=== PATIENT | female | born 1980 | race Caucasian/White ===

== ENCOUNTER 2024-06-15 09:24 | Emergency (ER) | payer OTHER, SELFPAY ==
[2024-06-15 09:42] VITALS: BP 137/75; PULSE 104; RESP 16; TEMP 36.4; O2SAT 100
--- NOTE | 2024-06-15 10:48 | ECG_ITS ---
Test Date: 2024-06-15 11:26:39 Measurements Intervals [place] Rate: 89 P: 50 WV: 165 QRS: 50 QRSD: 94 T: 29 QT: 366 QTc: 447 Interpretive Statements SINUS RHYTHM BASELINE ARTIFACT- I, II, III, AVR, AVL, AVF, V1-V3 NORMAL ECG No previous ECG available for comparison Electronically Signed On 06-15-2024 13:29:17 NETWORK CONTROL SUPERVISOR by Derrell Samuel D.O.
--- NOTE | 2024-06-15 10:49 | ED.GENADULT ---
HPI - General Adult General Chief complaint: Unspecified <Patricia Weeks CHAIN SAW MECHANIC - Last Filed: 06/15/24 10:52> Stated complaint: insomnia <Patricia Weeks APRN - Last Filed: 06/15/24 10:52> Time Seen by Provider: 06/15/24 10:40 <Patricia Weeks CHAIN SAW MECHANIC - Last Filed: 06/15/24 10:52> Focused HPI: Patient is a 43-year-old female presents to the ER with complaints not sleeping for ?5 days. She reports ?my mind is racing and I'm irritable. Patient reports they have tried to do medication changes at [place], where she currently resides, but they have not helped relieve her insomnia. She will reports she has not used any illicit drugs since May 21, 2024. Patient reports she currently takes Ativan, hydroxyzine, trazodone, Seroquel, and other psychiatric medications. She denies any suicidal ideation or homicidal ideation. Patient denies headaches, chest pain, shortness of breath, recent fevers, but endorses feeling ?brain . GENERAL: Ill-appearing, well-nourished, and in no acute distress. HEAD: Normocephalic, atraumatic. CHEST: Clear to auscultation. ?No respiratory distress. HEART: Tachycardia, regular rhythm NEURO: ?Alert and oriented x3. Patient screened in triage and initial orders placed.? ?Additional care and disposition to be based upon?diagnostic testing and treatment. <Patricia Weeks, CHAIN SAW MECHANIC - Last Filed: 06/15/24 10:52> Related Data Allergies/adverse reactions: Allergies Allergy/AdvReac Type Severity Reaction Status Date / Time azithromycin Allergy Hives Verified 06/15/24 09:46 cefaclor (From Ceclor) Allergy Hives Verified 06/15/24 09:46 fluoxetine (From Prozac) Allergy Swelling Verified 06/15/24 09:46 of the Eye Sulfa (Sulfonamide Allergy Hives Verified 06/15/24 09:46 Antibiotics) <Patricia Weeks APRN - Last Filed: 06/15/24 10:52> Exam Narrative: APPEARANCE: No apparent distress. Head: atraumatic. EYES: EOMI, NOSE: Atraumatic NECK: Trachea midline RESPIRATORY: No increased rate of breathing CTAB CARDIOVASCULAR: RRR, no peripheral edema ABDOMINAL: Non-distended soft nontender MUSCULOSKELETAl: No obvious deformities NEURO: Alert. Moving 4/4 extremities SKIN:: Warm, dry. Normal color PSYCHIATRIC: Normal affect <Kervin Dunbar MD - Last Filed: 06/15/24 12:38> Course Vital Signs Vital signs: Vital Signs Temperature 97.6 F 06/15/24 09:42 Pulse Rate 104 H 06/15/24 09:42 Respiratory Rate 16 06/15/24 09:42 Blood Pressure 137/75 06/15/24 09:42 Pulse Oximetry 100 06/15/24 09:42 Temperature 97.6 F 06/15/24 09:42 Pulse Rate 104 H 06/15/24 09:42 Respiratory Rate 16 06/15/24 09:42 Blood Pressure 137/75 06/15/24 09:42 Pulse Oximetry 100 06/15/24 09:42 <Patricia Weeks APRN - Last Filed: 06/15/24 10:52> Vital Signs Temperature 97.6 F 06/15/24 09:42 Pulse Rate 104 H 06/15/24 09:42 Respiratory Rate 16 06/15/24 09:42 Blood Pressure 137/75 06/15/24 09:42 Pulse Oximetry 100 06/15/24 09:42 Temperature 97.6 F 06/15/24 09:42 Pulse Rate 104 H 06/15/24 09:42 Respiratory Rate 16 06/15/24 09:42 Blood Pressure 137/75 06/15/24 09:42 Pulse Oximetry 100 06/15/24 09:42 <Kervin Dunbar MD - Last Filed: 06/15/24 12:38> Medical Decision Making MDM Narrative Medical decision making narrative: -Course: 43-year-old female history of insomnia presenting with difficulty sleeping. Her medications are being changed by her primary care physician. Patient is not suicidal homicidal or psychotic. She was given benzodiazepines for anxiolysis and sleep. Discharged follow-up with her PCP. -DDX includes but is not limited to: Insomnia, anxiety <Kervin Dunbar MD - Last Filed: 06/15/24 12:38> Vital Signs Vital Signs: Vital Signs Temperature 97.6 F 06/15/24 09:42 Pulse Rate 104 H 06/15/24 09:42 Respiratory Rate 16 06/15/24 09:42 Blood Pressure 137/75 06/15/24 09:42 Pulse Oximetry 100 06/15/24 09:42 Temperature 97.6 F 06/15/24 09:42 Pulse Rate 104 H 06/15/24 09:42 Respiratory Rate 16 06/15/24 09:42 Blood Pressure 137/75 06/15/24 09:42 Pulse Oximetry 100 06/15/24 09:42 <Patricia Weeks APRN - Last Filed: 06/15/24 10:52> Vital Signs Temperature 97.6 F 06/15/24 09:42 Pulse Rate 104 H 06/15/24 09:42 Respiratory Rate 16 06/15/24 09:42 Blood Pressure 137/75 06/15/24 09:42 Pulse Oximetry 100 06/15/24 09:42 Temperature 97.6 F 06/15/24 09:42 Pulse Rate 104 H 06/15/24 09:42 Respiratory Rate 16 06/15/24 09:42 Blood Pressure 137/75 06/15/24 09:42 Pulse Oximetry 100 06/15/24 09:42 <Kervin Dunbar MD - Last Filed: 06/15/24 12:38> Lab Data Result diagrams: 06/15/24 11:16 06/15/24 11:16 <Patricia Weeks APRN - Last Filed: 06/15/24 10:52> Labs: Lab Results 06/15/24 06/15/24 Range/Units 11:06 11:16 WBC 6.8 (4.5-10.0) K/mm3 RBC 4.48 (4.2-5.4) M/mm3 Hgb 13.2 (12.0-15.0) g/dL Hct 41.6 (37.0-47.0) % MCV 92.9 (80-100) fl MCH 29.5 (26-34) pg MCHC 31.7 L (32-36) g/dl RDW 12.1 (11.5-14.5) % Plt Count 185 (150-375) k/mm3 MPV 10.0 (7.4-10.4) fl Immature Gran % (Auto) 0.3 (0-0.5) % Neut % (Auto) 58.7 (45.5-73.1) % Lymph % (Auto) 28.4 (18.3-44.2) % [place] % (Auto) 8.4 (2.6-8.5) % Eos % (Auto) 3.6 (0-4.4) % Baso % (Auto) 0.6 (0.2-1.2) % Lymph # (Auto) 1.92 (0.9-3.2) K/mm3 [place] # (Auto) 0.6 (0.1-0.6) K/mm3 Eos # (Auto) 0.2 (0-0.3) K/mm3 Baso # (Auto) 0.0 (0.0-0.1) K/mm3 Abs Immat Gran (auto) 0.02 (0.00-0.031) K/mm3 Absolute Neuts (auto) 4.0 (1.3-6.7) K/mm3 Absolute Nucleated RBC 0.000 (0.0-0.012) K/mm3 Nucleated RBC % 0.0 (0.0-0.2) % Sodium 135 L (137-145) mmol/L Potassium 4.3 (3.4-5.0) mmol/L Chloride 100 (98-107) mmol/L Carbon Dioxide 31 H (22-30) mmol/L Anion Gap 4 (4-12) mmol/L BUN 13 (7-17) mg/dL Creatinine 0.69 L (0.7-1.0) mg/dL Estim Creat Clear Calc 113 ml/min Estimated GFR > 60 (59 - ) Glucose 93 (65-110) mg/dL Calcium 8.9 (8.4-10.2) mg/dL Total Bilirubin 0.4 (0.2-1.3) mg/dL AST 23 (14-36) U/L ALT 20 (6-35) U/L Alkaline Phosphatase 54 (38-126) U/L Total Protein 7.0 (6.3-8.2) g/dL Albumin 3.8 (3.5-5.1) g/dL TSH (Reflex) Pending Urine Color Yellow (Yellow) Urine Appearance Clear (Clear) Urine pH 7.0 (5.0-9.0) Ur Specific Rosalie 1.011 (1.001-1.035) Urine Protein Negative (Negative) mg/dL Urine Glucose (UA) Negative (Negative) mg/dL Urine Ketones Negative (Negative) mg/dL Ur Blood (Man) Negative (Negative) Urine Nitrate Negative (Negative) Urine Bilirubin Negative (Negative) Urine Urobilinogen 0.2 (<2.0) mg/dL Leukocyte Esterase Rfl Negative (Negative) JESSICA/UL Urine Opiates Screen Positive A (Negative) Urine Methadone Screen Negative (Negative) Ur Barbiturates Screen Negative (Negative) Ur Phencyclidine Scrn Negative (Negative) Ur Amphetamine Screen Negative (Negative) U Benzodiazepines Scrn Negative (Negative) Urine Cocaine Screen Negative (Negative) U Cannabinoids Screen Positive A (Negative) Influenza A (RT-PCR) Negative (Negative) Influenza B (RT-PCR) Negative (Negative) RSV (RT-PCR) Negative (Negative) SARS-CoV-2 RNA (RT-PCR) Negative (Negative) <Patricia Weeks, CHAIN SAW MECHANIC - Last Filed: 06/15/24 10:52> Lab Results 06/15/24 06/15/24 Range/Units 11:06 11:16 WBC 6.8 (4.5-10.0) K/mm3 RBC 4.48 (4.2-5.4) M/mm3 Hgb 13.2 (12.0-15.0) g/dL Hct 41.6 (37.0-47.0) % MCV 92.9 (80-100) fl MCH 29.5 (26-34) pg MCHC 31.7 L (32-36) g/dl RDW 12.1 (11.5-14.5) % Plt Count 185 (150-375) k/mm3 MPV 10.0 (7.4-10.4) fl Immature Gran % (Auto) 0.3 (0-0.5) % Neut % (Auto) 58.7 (45.5-73.1) % Lymph % (Auto) 28.4 (18.3-44.2) % [place] % (Auto) 8.4 (2.6-8.5) % Eos % (Auto) 3.6 (0-4.4) % Baso % (Auto) 0.6 (0.2-1.2) % Lymph # (Auto) 1.92 (0.9-3.2) K/mm3 [place] # (Auto) 0.6 (0.1-0.6) K/mm3 Eos # (Auto) 0.2 (0-0.3) K/mm3 Baso # (Auto) 0.0 (0.0-0.1) K/mm3 Abs Immat Gran (auto) 0.02 (0.00-0.031) K/mm3 Absolute Neuts (auto) 4.0 (1.3-6.7) K/mm3 Absolute Nucleated RBC 0.000 (0.0-0.012) K/mm3 Nucleated RBC % 0.0 (0.0-0.2) % Sodium 135 L (137-145) mmol/L Potassium 4.3 (3.4-5.0) mmol/L Chloride 100 (98-107) mmol/L Carbon Dioxide 31 H (22-30) mmol/L Anion Gap 4 (4-12) mmol/L BUN 13 (7-17) mg/dL Creatinine 0.69 L (0.7-1.0) mg/dL Estim Creat Clear Calc 113 ml/min Estimated GFR > 60 (59 - ) Glucose 93 (65-110) mg/dL Calcium 8.9 (8.4-10.2) mg/dL Total Bilirubin 0.4 (0.2-1.3) mg/dL AST 23 (14-36) U/L ALT 20 (6-35) U/L Alkaline Phosphatase 54 (38-126) U/L Total Protein 7.0 (6.3-8.2) g/dL Albumin 3.8 (3.5-5.1) g/dL TSH (Reflex) Pending Urine Color Yellow (Yellow) Urine Appearance Clear (Clear) Urine pH 7.0 (5.0-9.0) Ur Specific Rosalie 1.011 (1.001-1.035) Urine Protein Negative (Negative) mg/dL Urine Glucose (UA) Negative (Negative) mg/dL Urine Ketones Negative (Negative) mg/dL Ur Blood (Man) Negative (Negative) Urine Nitrate Negative (Negative) Urine Bilirubin Negative (Negative) Urine Urobilinogen 0.2 (<2.0) mg/dL Leukocyte Esterase Rfl Negative (Negative) JESSICA/UL Urine Opiates Screen Positive A (Negative) Urine Methadone Screen Negative (Negative) Ur Barbiturates Screen Negative (Negative) Ur Phencyclidine Scrn Negative (Negative) Ur Amphetamine Screen Negative (Negative) U Benzodiazepines Scrn Negative (Negative) Urine Cocaine Screen Negative (Negative) U Cannabinoids Screen Positive A (Negative) Influenza A (RT-PCR) Negative (Negative) Influenza B (RT-PCR) Negative (Negative) RSV (RT-PCR) Negative (Negative) SARS-CoV-2 RNA (RT-PCR) Negative (Negative) <Kervin Dunbar MD - Last Filed: 06/15/24 12:38> Discharge Plan Discharge Clinical Impression: Insomnia <Patricia Weeks APRN - Last Filed: 06/15/24 10:52> Patient Disposition: Home, Self-Care <Patricia Weeks APRN - Last Filed: 06/15/24 10:52> Condition: Stable <Patricia Weeks APRN - Last Filed: 06/15/24 10:52> Instructions: Antibiotic Form, Insomnia (ED) <Patricia Weeks APRN - Last Filed: 06/15/24 10:52> Additional Instructions: Please follow-up with your primary care physician for management of your psychiatric medications. Return if you develop thoughts of harming herself or others. <Patricia Weeks APRN - Last Filed: 06/15/24 10:52> Patient Language: Armenian <Patricia Weeks APRN - Last Filed: 06/15/24 10:52> Follow-up/Referrals: PHYSICIAN NOT ON STAFF,NONSTAFF [Primary Care Provider] - <Patricia Weeks APRN - Last Filed: 06/15/24 10:52>
[2024-06-15 11:17] LABS: Add Urine Microscopic? NO; Appearance Urine Clear (Clear); Bilirubin Urine Negative (Negative); Blood Urine Negative (Negative); Color Urine Yellow (Yellow); Glucose Urine UA Negative (Negative); Ketones Urine Negative (Negative); Leukocyte Esterase Ur Negative LEU/UL (Negative); Nitrate Urine Negative (Negative); Protein Urine Negative (Negative); Specific Grav Ur 1.011 (1.001-1.035); Urobilinogen Urine 0.2 mg/dL (<2.0)
[2024-06-15] MEDS: LORazepam (*CRX) 1 MG TABLET PO (11:21)
[2024-06-15 11:29] LABS: Basophils Percent Auto 0.6 % (0.2-1.2); Eosinophils Absolute Auto 0.2 K/mm3 (0-0.3); Eosinophils Percent Auto 3.6 % (0-4.4); Hematocrit 41.6 % (37.0-47.0); Hemoglobin 13.2 g/dL (12.0-15.0); Immature Granulocyte Absolute 0.02 K/mm3 (0.00-0.031); Immature Granulocyte Percent A 0.3 % (0-0.5); Lymphocytes Absolute Auto 1.92 K/mm3 (0.9-3.2); Lymphocytes Percent Auto 28.4 % (18.3-44.2); Mean Corpuscular HGB Conc 31.7 g/dl (32-36); Mean Corpuscular Hemoglobin 29.5 pg (26-34); Mean Corpuscular Volume 92.9 fl (80-100); Monocytes Absolute Auto 0.6 K/mm3 (0.1-0.6); Monocytes Percent Auto 8.4 % (2.6-8.5); Neutrophils Percent Auto 58.7 % (45.5-73.1); Platelet Count Result 185 k/mm3 (150-375); Red Blood Count 4.48 M/mm3 (4.2-5.4); Red Cell Distribution Width 12.1 % (11.5-14.5); White Blood Count 6.8 K/mm3 (4.5-10.0)
[2024-06-15 11:32] LABS: Amphetamine Screen Urine Negative (Negative); Barbiturate Screen Urine Negative (Negative); Benzodiazepines Screen Urine Negative (Negative); Cannabinoid Screen Urine Positive (Negative); Cocaine Screen Urine Negative (Negative); Methadone Screen Urine Negative (Negative); Opiate Screen Urine Positive (Negative); Phencyclidine Screen Urine Negative (Negative)
[2024-06-15 11:48] LABS: Alanine Aminotransferase 20 U/L (6-35); Albumin Level 3.8 g/dL (3.5-5.1); Alkaline Phosphatase 54 U/L (38-126); Anion Gap 4 mmol/L (4-12); Aspartate Amino Transferase 23 U/L (14-36); Bilirubin,Total 0.4 mg/dL (0.2-1.3); Blood Urea Nitrogen 13 mg/dL (7-17); Calcium 8.9 mg/dL (8.4-10.2); Carbon Dioxide 31 mmol/L (22-30); Chloride 100 mmol/L (98-107); Estimated CRCL calculation 113 ml/min; Estimated Glomerular Filt Rate > 60; Glucose 93 mg/dL (65-110); Potassium 4.3 mmol/L (3.4-5.0); Sodium 135 mmol/L (137-145)
[2024-06-15 12:05] LABS: Influenza A QL RT-PCR Negative (Negative); Influenza B QL RT-PCR Negative (Negative); RSV RNA, RT-PCR Negative (Negative); SARS-CoV-2 RNA PCR Negative (Negative)
[2024-06-15] MEDS: diazePAM INJ (*CRX) 10 MG/2 ML SYRINGE 5 MG IM (12:42)
--- OUTSIDE RECORDS SUMMARY | 2024-06-15 13:39 | XMS_ITS | Clinical Summary ---
Author Organization [facility] Address [address] [place] [address] Phone Care Team Providers Care Safety Person Name Role Phone Migdalia Meek MD Primary Care Provider + [phone] Nona Hawley APRN, CHIEF ADMINISTRATIVE OFFICER Unavailable [phone] Allergies Active Allergy Reactions Criticality Noted Date Comments Cefaclor Hives,Diarrhea High Erythromycin Hives,Diarrhea High Fluoxetine Hcl Hives,Other (see Comments) High Angioedema and hives Sulfa Antibiotics Hives,Rash High Medications * This document contains information received from the source organization and may not represent a complete record from that organization. TraZODone HCl 300 MG Tablet Take 300 mg by mouth nightly. 5 6 Active Omeprazole 20 MG Tablet Delayed Response Take 20 mg by mouth daily. Active hydrOXYzine (ATARAX) 25 MG Tablet TK 1 TO 2 TS PO TID PRA 3 9 Active divalproex (DEPAKOTE ER) 500 MG TABLET SR 24 HR 500 mg nightly. 0 Active ARIPiprazole (ABILIFY) 5 MG Tablet Take 10 mg by mouth daily. Active melatonin 3 MG Tablet Take 10 mg by mouth nightly. 10 mg q hs Active tiZANidine (ZANAFLEX) 4 MG Tablet Take 1 Tablet by mouth every 6 hours as needed for Muscle spasms. 360 Tablet 1 1 Active HYDROcodone-acet aminophen (NORCO) 10-325 MG TabletIndication s:Postlaminectom y syndrome, lumbar region Take 1 Tablet by mouth every 6 hours as needed for Moderate or more severe pain. 120 Tablet 2 Active morphine (MS CONTIN) 30 MG Tablet Controlled ReleaseIndicatio ns:Postlaminecto my syndrome, lumbar region Take 1 Tablet by mouth 2 times daily. 60 Tablet 2 Active pregabalin (Lyrica) 150 MG CapsuleIndicatio ns:Postlaminecto my syndrome, lumbar region Take 1 Capsule by mouth 3 times daily. 270 Capsule 2 Active naloxone HCl (Narcan) 4 MG/0.1ML Liquid 1 [place] by Nasal route as needed (possible overdose). 1 Each 2 Active ALPRAZolam (XANAX) 0.5 MG Tablet Take 0.5 mg by mouth 3 times daily as needed. Active cyclobenzaprine (FLEXERIL) 10 MG Tablet Take 10 mg by mouth in the morning and at bedtime. Active DULoxetine (Cymbalta) [address] Particles Take 60 mg by mouth daily. Active ibuprofen (MOTRIN) 200 MG Tablet Take 200 mg by mouth every 8 hours as needed. 3 tablets 1-2 times daily as needed for back pain Active ondansetron (ZOFRAN-ODT) 4 MG TABLET DISPERSIBLE Take 4 mg by mouth every 8 hours as needed. Active rizatriptan (MAXALT-CURRENCY COUNTER) 10 MG TABLET DISPERSIBLE Take 10 mg by mouth once as needed. Active Cyanocobalamin (B-12) 1000 MCG Capsule Take by mouth. Active Cholecalciferol (VITAMIN D-3 PO) Take by mouth. Active amphetamine-dext roamphetamine (Adderall XR) 15 MG CAPSULE SR 24 HR Take 15 mg by mouth every morning. Active Atogepant (Qulipta) 10 MG TabletIndication s:Migraine Take at bedtime Indications: Migraine Headache 30 Tablet 2 4 Active LORazepam (ATIVAN) 1 MG TabletIndication s:Anxiety Take 1 Tablet by mouth every 8 hours as needed for Anxiety. 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 Date Type Department Care Team Description 05/23/2024 Documentation Only [facility] [address], [address] [address] Ambar Goetz, OT 05/14/2024 4:07 AM DRAWING IN MACHINE TENDER - 05/14/2024 7:24 AM DRAWING IN MACHINE TENDER Emergency [facility] [address] [place] [address] Harriet Carlin MD Anxiety Discharge Disposition: Discharged to home or Selfcare 05/14/2024 Travel 05/09/2024 Telephone [facility] [address], [address] [place] [address] Ambar Goetz, OT no show 05/02/2024 11:55 AM DRAWING IN MACHINE TENDER Urgent Care Visit [facility] [place] [address] [place] [address] Colby Acosta, PAC Bacterial upper respiratory infection (Primary Dx); Chills Discharge Disposition: Discharged to home or Selfcare 05/02/2024 Travel 04/26/2024 10:45 AM DRAWING IN MACHINE TENDER Physical Therapy [facility] [address] [place] [address] Nona Hawley M, TOP COLLAR MAKER, CHIEF ADMINISTRATIVE OFFICER Keely Brewster, PT Chronic post-traumatic headache, not intractable (Primary Dx); Post concussion syndrome; Neck pain Discharge Disposition: Discharged to home or Selfcare 04/25/2024 1:45 PM DRAWING IN MACHINE TENDER Speech Therapy [facility] [address] [place] [phone] Nona Hawley APRN, Polina Blake, MS CCC-TYPE COPY EXAMINER Post concussion syndrome (Primary Dx); Neurocognitive disorder Discharge Disposition: Discharged to home or Selfcare 04/25/2024 Travel 04/22/2024 1:00 PM DRAWING IN MACHINE TENDER Telemedicine [facility] [address] [place] [address] Nona Hawley APRN, TIM Chronic migraine w/o aura w/o status migrainosus, not intractable (Primary Dx); Neurocognitive disorder; Post concussion syndrome 04/22/2024 Travel 04/21/2024 11:30 AM DRAWING IN MACHINE TENDER Occupational Therapy [facility] [address] [place] [phone] Nona Hawley APRN, CHIEF ADMINISTRATIVE OFFICER Sofy, Ambar, OT Post concussion syndrome (Primary Dx) Discharge Disposition: Discharged to home or Selfcare 04/21/2024 Telephone [facility] [address] [place] [phone] Keely Brewster, PT PT cancel due to other appointment 04/18/2024 1:45 PM DRAWING IN MACHINE TENDER Speech Therapy [facility] [address] [place] [phone] Nona Hawley APRN, Polina Blake, MS CCC-TYPE COPY EXAMINER Post concussion syndrome (Primary Dx); Neurocognitive disorder Discharge Disposition: Discharged to home or Selfcare 04/18/2024 Travel 04/14/2024 1:00 PM DRAWING IN MACHINE TENDER Speech Therapy [facility] [address] [place] [address] Nona Hawley APRN, Polina Blake, MS CCC-TYPE COPY EXAMINER Post concussion syndrome (Primary Dx); Neurocognitive disorder Discharge Disposition: Discharged to home or Selfcare 04/11/2024 1:00 PM DRAWING IN MACHINE TENDER Speech Therapy [facility] [address] [place] [address] Nona Hawley APRN, Polina Blake, MS CCC-TYPE COPY EXAMINER Post concussion syndrome (Primary Dx); Neurocognitive disorder Discharge Disposition: Discharged to home or Selfcare 04/11/2024 Travel 03/31/2024 1:45 PM DRAWING IN MACHINE TENDER Physical Therapy [facility] [address] [place] [address] Nona Hawley APRN, CHIEF ADMINISTRATIVE OFFICER Colby Molina, YOU Chronic post-traumatic headache, not intractable (Primary Dx) Discharge Disposition: Discharged to home or Selfcare 03/31/2024 1:00 PM DRAWING IN MACHINE TENDER Speech Therapy [facility] [address] [place] [address] Nona Hawley APRN, Polina Blake, MS CCC-TYPE COPY EXAMINER Post concussion syndrome (Primary Dx); Neurocognitive disorder Discharge Disposition: Discharged to home or Selfcare 03/28/2024 1:45 PM DRAWING IN MACHINE TENDER Speech Therapy [facility] [address] [place] [address] Nona Hawley APRN, Polina Blake, MS CCC-TYPE COPY EXAMINER Post concussion syndrome (Primary Dx); Neurocognitive disorder Discharge Disposition: Discharged to home or Selfcare 03/28/2024 Travel 03/24/2024 2:00 PM DRAWING IN MACHINE TENDER Physical Therapy [facility] [address] [place] [address] Nona Hawley APRN, CHIEF ADMINISTRATIVE OFFICER Keely Brewster, PT Chronic post-traumatic headache, not intractable (Primary Dx); Post concussion syndrome; Neck pain Discharge Disposition: Discharged to home or Selfcare 03/24/2024 Travel 03/24/2024 Telephone [facility] [address] [address] Ambar Goetz, OT cancel 03/17/2024 1:45 PM DRAWING IN MACHINE TENDER Physical Therapy [facility] [address] [place] [address] Nona Hawley APRN, CHIEF ADMINISTRATIVE OFFICER Colby Molina, ACQUISITION COST ESTIMATOR Chronic post-traumatic headache, not intractable (Primary Dx) Discharge Disposition: Discharged to home or Selfcare 03/17/2024 1:00 PM DRAWING IN MACHINE TENDER Speech Therapy [facility] [address] [place] [address] Nona Hawley APRN, CHIEF ADMINISTRATIVE OFFICER Polina Mcdowell [facility]-TYPE COPY EXAMINER Post concussion syndrome (Primary Dx) Discharge Disposition: Discharged to home or Selfcare from Last 3 Months Family History Medical History Relation Name Comments Asthma Father Diabetes Father Heart Disease Father High Cholesterol Father Hypertension Father Asthma Mother High Cholesterol Mother Hypertension Mother Relation Name Status Comments Father Alive Mother Alive Social History Tobacco Use Types Packs/Day Years Used Date Smoking Tobacco: Former Cigarettes 0.5 26.4 S tarted: 01/02/1998 Smokeless Tobacco: Never Tobacco Cessation:Counseling Given: Not Answered Alcohol Use Standard Drinks/Week Comments Yes 0 (1 standard drink = 0.6 oz pur e alcohol) rare AUDIT-C Answer Date Recorded Frequency of Alcohol Consumption Never 04/13/2019 Average Number of Drinks Not on file 019 Frequency of Binge Drinking Not on file 08/2018 Comments No Sex and Gender Information Value Date Recorded Sex Assigned at Female 05/14/2024 4:10 AM DRAWING IN MACHINE TENDER Legal Sex Female 4:22 AM CDT Gender Identity Female 05/14/2024 4:10 AM DRAWING IN MACHINE TENDER Sexual Orientation Not on file 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 Not on file Not on fi le Last Filed Vital Signs Vital Sign Reading Time Taken Comments Blood Pressure 120/72 05/14/2024 5:00 AM DRAWING IN MACHINE TENDER Pulse 78 05/14/2024 5:00 AM DRAWING IN MACHINE TENDER Temperature 37.1 C (98.7 F) 05/14/2024 4:14 AM DRAWING IN MACHINE TENDER Respiratory Rate 20 05/14/2024 4:14 AM DRAWING IN MACHINE TENDER Oxygen Saturation 95% 05/14/2024 5:00 AM DRAWING IN MACHINE TENDER Inhaled Oxygen Concentration - - Weight 90.7 kg (200 lb) 05/14/2024 4:14 AM DRAWING IN MACHINE TENDER Height 175.3 cm (5' 9 ) 05/14/2024 4:14 AM DRAWING IN MACHINE TENDER Body Mass Index 29.53 05/14/2024 4:14 AM DRAWING IN MACHINE TENDER Plan of Treatment Health Maintenance Due Date Last Done Comments Hepatitis C Virus (HCV) Screening 1980 Pap Smear 2001 Cervical Cancer Screening (CCS) 2010 HPV/Cotest 2010 Discussion re Starting/Frequency of Mammograms 2020 Influenza Immunization (#1) 2024 SARS-COV-2 Immunization ( season) 2024 05/30/2020, 05/09/2020 Respiratory Syncytial Virus (RSV) Immunization (Adult) (1 - 1-dose 75+ series) 08/27/2055 Hepatitis B Immunization Completed 997, 06/21/1996, 05/24/1996 DTaP/Tdap/Td Immunization Discontinued 2019, 11/28/2016, 10/07/2016 TdaP Immunization Completed 09/15/2019, 11/28/2016, 10/07/2016 Meningococcal Immunization (ACWY) Aged Out No longer eligible based on patient's age to complete this topic Pneumococcal Immunization Combined Aged Out No longer eligible based on patient's age to complete this topic Rotavirus Immunization Aged Out No lo nger eligible based on patient's age to complete this topic Procedures Procedure Name Priority Date/Time Associated Diagnosis Comments POC INFLUENZA A AND B BY MOLECULAR Routine 05/02/2024 1:15 PM DRAWING IN MACHINE TENDER Chills POC SARS-COV-2 BY MOLECULAR Routine 05/02/2024 1:15 PM DRAWING IN MACHINE TENDER Chills from Last 3 Months Results * POC SARS-COV-2 BY MOLECULAR (05/02/2024 1:15 PM DRAWING IN MACHINE TENDER) SARSCOV2 Negative Negative, INVALID PROCEDURE CONTROL Valid 05/02/2024 1:15 PM DRAWING IN MACHINE TENDER [facility] POINT OF CARE TESTING (MANUAL ) Final Result * POC INFLUENZA A AND B BY MOLECULAR (05/02/2024 1:15 PM DRAWING IN MACHINE TENDER) INFLUENZA A RNA Negative Negative, Invalid INFLUENZA B RNA Negative Negative, Invalid PROCEDURE CONTROL Valid 05/02/2024 1:15 PM DRAWING IN MACHINE TENDER [facility] POINT OF CARE TESTING (MANUAL ) Final Result from Last 3 Months Insurance MEDICAID [employer] MEDICAID [place] [facility] Care Teams Safety Person Relationship Specialty Start Date End Date Migdalia Meek MD [address] [place] [id number] PCP - General Family Medicine 02/18/17 Nona Hawley APRN, CHIEF ADMINISTRATIVE OFFICER [address] [place] [address] Nurse Practitioner Advanced Practice Nurse 02/22/24
--- OUTSIDE RECORDS SUMMARY | 2024-06-15 13:39 | XMS_ITS | Encounter Summary ---
Author Organization [facility] Address [address] [place] [address] Phone Care Team Providers Care Station Attendant Name Role Phone Migdalia Meek MD Primary Care Provider +1 -[phone] Nona Hawley APRN, BLANKET MAKER Unavailable +1- [phone] Reason for Visit * Reason Onset Date Comments UTOX 08/02/2020 Encounter Details Date Type Department Care Team (Late st Contact Info) Description 08/02/2020 Telephone [facility] [address] [facility] [address] [place] [address] Nicole [facility] Social History Tobacco Use Types Packs/Day Years Used Date Smoking Tobacco: Every Day Cigarettes 0.5 26.4 Started: 01/02/1998 Smokeless Tobacco: Never Alcohol Use Standard Drinks/Week Comments Not Currently 0 (1 standard drink = 0.6 oz pur e alcohol) very seldom AUDIT-C Answer Date Recorded Frequency of Alcohol Consumption Never 04/13/2019 Average Number of Drinks Not on file 019 Frequency of Binge Drinking Not on file 08/2018 Comments No Sex and Gender Information Value Date Recorded Sex Assigned at Female 05/14/2024 4:10 AM PROFESSOR OF BUSINESS Legal Sex Female 4:22 AM CDT Gender Identity Female 05/14/2024 4:10 AM PROFESSOR OF BUSINESS Sexual Orientation Not on file 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 No / Unsure 07/18/2020 1:56 PM PROFESSOR OF BUSINESS documented as of this encounter Miscellaneous Notes * Telephone Encounter - Nicole Holland RN - 08/02/2020 10:05 AM CDT Reviewed final confirmation of UDS collected on 07/18/20, consistsent. documented in this encounter Plan of Treatment Not on file documented as of this encounter Visit Diagnoses Not on filedocumented in this encounter Additional Health Concerns Infection Onset Date Last Indicated Resolved Time COVID - 19 05/02/2024 05/02/2024 05/02/2024 1:26 PM PROFESSOR OF BUSINESS Respiratory Rule-Out 05/02/2024 05/02/2024 024 1:25 PM PROFESSOR OF BUSINESS documented as of this encounter Care Teams Station Attendant Relationship Specialty Start Date End Date Migdalia Meek MD [address] [place] [id number] PCP - General Family Medicine 02/18/17 Nona Hawley, COMMUNITY SERVICE PATROL OFFICER, BLANKET MAKER [address] [place] [address] Nurse Practitioner Advanced Practice Nurse 02/22/24 documented as of this encounter
--- OUTSIDE RECORDS SUMMARY | 2024-06-15 13:39 | XMS_ITS | Encounter Summary ---
Author Organization [facility] Address [address] [place] [address] Phone Care Team Providers Care Supervisor Painting Department Name Role Phone Migdalia Meek MD Primary Care Provider [phone] Nona Hawley CREATIVE GURU, DISPATCHER SERVICE OR WORK Unavailable [phone]- [phone] Reason for Visit * Reason Onset Date Comments Other 11/01/2021 UTOX Encounter Details Date Type Department Care Team (Late st Contact Info) Description 11/01/2021 Telephone [facility] [address] [facility] [address] [place] [address] Nicole Holland RN [place] Other (UTOX) Social History Tobacco Use Types Packs/Day Years [...] Sex Assigned at Female 05/14/2024 4:10 AM COMPLETIONS ENGINEER Legal Sex Female 4:22 AM CDT Gender Identity Female 05/14/2024 4:10 AM COMPLETIONS ENGINEER Sexual Orientation Not on file 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 No / Unsure 10/11/2021 1:43 PM CDT documented as of this encounter Miscellaneous Notes * Telephone Encounter - Nicole Holland RN - 11/01/2021 10:58 AM CDT Reviewed final confirmation of UDS collected on 10/11/21, inconsistent + (THC 24), negative hydrocodone or metabolites. documented in this encounter Plan of Treatment Not on file documented as of this encounter Visit Diagnoses Not on filedocumented in this encounter Additional Health Concerns Infection Onset Date Last Indicated Resolved Time COVID - 19 05/02/2024 05/02/2024 05/02/2024 1:26 PM COMPLETIONS ENGINEER Respiratory Rule-Out 05/02/2024 05/02/2024 024 1:25 PM COMPLETIONS ENGINEER documented as of this encounter Care Teams Supervisor Painting Department Relationship Specialty Start Date End Date Migdalia Meek MD [address] [place] [id number] PCP - General Family Medicine 02/18/17 Nona Hawley APRN, DISPATCHER SERVICE OR WORK [address] [place] [address] Nurse Practitioner Advanced Practice Nurse 02/22/24 documented as of this encounter
--- OUTSIDE RECORDS SUMMARY | 2024-06-15 13:39 | XMS_ITS | Encounter Summary ---
Author Organization [facility] Address [address] [place] [address] Phone Care Team Providers Care Wealth Management Consultant Name Role Phone Migdalia Meek MD Primary Care Provider [phone] Nona Hawley APRN, PROSTHETICS ASSISTANT Unavailable [phone]- [phone] Reason for Visit * Reason Onset Date Comments UTOX 12/24/2020 Encounter Details Date Type Department Care Team (Late st Contact Info) Description 12/24/2020 Telephone [facility] [address] [facility] [address] [place] [address] 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 documented in this encounter Plan of Treatment Not on file documented as of this encounter Visit Diagnoses Not on filedocumented in this encounter Additional Health Concerns Infection Onset Date Last Indicated Resolved Time COVID - 19 05/02/2024 05/02/2024 05/02/2024 1:26 PM BONE DRIER Respiratory Rule-Out 05/02/2024 05/02/2024 024 1:25 PM BONE DRIER documented as of this encounter Care Teams Wealth Management Consultant Relationship Specialty Start Date End Date Migdalia Meek MD [address] [place] [address] PCP - General Family Medicine 02/18/17 Nona Hawley APRN, PROSTHETICS ASSISTANT [address] [place] [address] Nurse Practitioner Advanced Practice Nurse 02/22/24 documented as of this encounter
--- OUTSIDE RECORDS SUMMARY | 2024-06-15 13:40 | XMS_ITS | Encounter Summary ---
Author Organization [facility] Address [address] [place] [address] Phone Care Team Providers Care News Technical Director Name Role Phone Migdalia Meek MD Primary Care Provider [phone] Nona Hawley APRN, CORPORATE LEARNING CONSULTANT Unavailable +1- [phone] Reason for Visit * Reason Onset Date Comments Other 03/13/2020 MRI Encounter Details Date Type Department Care Team (Late st Contact Info) Description 03/13/2020 Telephone [facility] [address] [facility] [address] [place] [address] Korin Feliciano, RN [place] Other (MRI) Social History Tobacco Use Types Packs/Day Years [...] Sex Assigned at Female 05/14/2024 4:10 AM BEAN ROASTER Legal Sex Female 4:22 AM CDT Gender Identity Female 05/14/2024 4:10 AM BEAN ROASTER Sexual Orientation Not on file 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 No / Unsure 03/13/2020 3:03 PM BEAN ROASTER documented as of this encounter Miscellaneous Notes * Telephone Encounter - Jennifer Engel LPN - 03/14/2020 9:34 AM BEAN ROASTER Noted; thank you ROASTER * Telephone Encounter - Chante Martin RN - 03/14/2020 7:20 AM BEAN ROASTER Pt calls the patients and schedules them. I will follow up on MRI. ROASTER * Telephone Encounter - Jennifer Engel LPN - 03/13/2020 4:07 PM BEAN ROASTER Pt. Order placed in Epic; pt. Will need to be scheduled if approved No early mornings; early afternoons ROASTER * Telephone Encounter - Korin Feliciano RN - 03/13/2020 3:40 PM CST PA for lumbar MRI with and without contrast. ROASTER documented in this encounter Plan of Treatment Not on file documented as of this encounter Visit Diagnoses Not on filedocumented in this encounter Additional Health Concerns Infection Onset Date Last Indicated Resolved Time COVID - 19 05/02/2024 05/02/2024 05/02/2024 1:26 PM BEAN ROASTER Respiratory Rule-Out 05/02/2024 05/02/2024 024 1:25 PM BEAN ROASTER documented as of this encounter Care Teams News Technical Director Relationship Specialty Start Date End Date Migdalia Meek MD [address] [place] [address] PCP - General Family Medicine 02/18/17 Nona Hawley, NASCAR PIT CREW PERSON, CORPORATE LEARNING CONSULTANT [address] [place] [address] Nurse Practitioner Advanced Practice Nurse 02/22/24 documented as of this encounter
--- OUTSIDE RECORDS SUMMARY | 2024-06-15 13:40 | XMS_ITS | Encounter Summary ---
Author Organization [facility] Address [address] [place] [address] Phone Care Team Providers Care Supervisor Scrap Preparation Name Role Phone Migdalia Meek MD Primary Care Provider [phone] -[phone] Nona Hawley ROTARY PLANER SET UP OPERATOR, TELEVISION NEWS ANCHOR Unavailable +1- [phone] Reason for Visit * Reason Comments Medication Refill Encounter Details Date Type Department Care Team ([facility] st Contact Info) Description 10/04/2019 Refill [facility] [address] [facility] [place] [facility] [address] [place] [address] Palmira Perea, JOSEFA, HOMICIDE DETECTIVE [address] [place] [address] Medication Refill Social History Tobacco Use Types Packs/Day Years [...] Sex Assigned at Female 05/14/2024 4:10 AM BULLET SWAGING MACHINE ADJUSTER Legal Sex Female 4:22 AM CDT Gender Identity Female 05/14/2024 4:10 AM BULLET SWAGING MACHINE ADJUSTER Sexual Orientation Not on file 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 No / Unsure 09/27/2019 10:31 AM CDT documented as of this encounter Miscellaneous Notes * Telephone Encounter - Jennifer Engel LPN - 10/04/2019 10:07 AM CDT Filled 08/18/19 x 1 refill documented in this encounter Plan of Treatment Not on file documented as of this encounter Visit Diagnoses Not on filedocumented in this encounter Additional Health Concerns Infection Onset Date Last Indicated Resolved Time COVID - 19 05/02/2024 05/02/2024 05/02/2024 1:26 PM BULLET SWAGING MACHINE ADJUSTER Respiratory Rule-Out 05/02/2024 05/02/2024 024 1:25 PM BULLET SWAGING MACHINE ADJUSTER documented as of this encounter Care Teams Supervisor Scrap Preparation Relationship Specialty Start Date End Date Migdalia Meek MD [address] [place] [address] PCP - General Family Medicine 02/18/17 Nona Hawley APRN, TELEVISION NEWS ANCHOR [address] [place] [address] Nurse Practitioner Advanced Practice Nurse 02/22/24 documented as of this encounter
--- OUTSIDE RECORDS SUMMARY | 2024-06-15 13:40 | XMS_ITS | Encounter Summary ---
Author Organization [facility] Address [address] [place] [address] Phone Care Team Providers Care Police Superintendent Name Role Phone Migdalia Meek MD Primary Care Provider [phone] -[phone] Nona Hawley APRN, BUSINESS ANALYST PROJECT MANAGER Unavailable +1- [phone] Reason for Visit * Reason Comments Medication Refill Encounter Details Date Type Department Care Team ([facility] st Contact Info) Description 01/14/2022 Refill [facility] [address] [facility] [address] [place] [address] Cassie Clemente, PARKING LOT SUPERVISOR, ELEMENTARY SCHOOL REGISTRAR [address] [place] [address] Medication Refill Social History Tobacco [...] Sex Assigned at Female 05/14/2024 4:10 AM ELECTRONIC ENGINEERING DRAFTSPERSON Legal Sex Female 4:22 AM CDT Gender Identity Female 05/14/2024 4:10 AM ELECTRONIC ENGINEERING DRAFTSPERSON Sexual Orientation Not on file 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 Not on file Not on fi le documented as of this encounter Plan of Treatment Not on file documented as of this encounter Visit Diagnoses Diagnosis Postlaminectomy syndrome, lumbar region documented in this encounter Additional Health Concerns Infection Onset Date Last Indicated Resolved Time COVID - 19 05/02/2024 05/02/2024 05/02/2024 1:26 PM ELECTRONIC ENGINEERING DRAFTSPERSON Respiratory Rule-Out 05/02/2024 05/02/2024 024 1:25 PM ELECTRONIC ENGINEERING DRAFTSPERSON documented as of this encounter Care Teams Police Superintendent Relationship Specialty Start Date End Date Migdalia Meek MD [address] [place] [id number] PCP - General Family Medicine 02/18/17 Nona Hawley APRN, BUSINESS ANALYST PROJECT MANAGER [address] [place] [address] Nurse Practitioner Advanced Practice Nurse 02/22/24 documented as of this encounter
--- OUTSIDE RECORDS SUMMARY | 2024-06-15 13:40 | XMS_ITS | Continuity of Care Document ---
Author Organization [facility] Address [address] [place] [address] Care Team Providers Care Glove Turner And Former Name Role Phone Candy Peres MD Unavailable Unavailable Procedures Procedure Date Ecg-routine 12 Lead; Intrpt & 0 Advance Directives Directive Yes / No Effective Date File Name No Information Encounters Encounter Description Practice Location Reason(s) For Visit Diagnoses Date Provider Providers Copied on Encounter [facility], [address] [place] [address], [facility], [facility] No Information 0 Ja Gupta. [address] [place] [address], [address] [place] [address]. tel:[phone] Referring Provider: Candy Yuen, [address] [place] [address], [facility]. tel:[phone] Family History Family Member Type Diagnosis Age At Onset No Information Payers Payer name Insurance type Covered green party ID Authoriza tilamont(s) [facility] CI [id number] Social History Type Description Quantity Date Captured Comments Sex Female Smoking Status No Information Chief Complaint And Reason For Visit No Information Reason For Referral Reason For Referral No Information History Of Present Illness Encounter Date Complaint History Of Prese nt Illness No Information Functional Status Date Functional Assessmen t No Information Instructions Date Instruction Additional Infor mation No Information Assessments Type Assessment Date No Information Patient Care Teams Name Effective Dates (start - stop) Status Members No Information
[2024-06-15 13:55] VITALS: BP 118/71; PULSE 91; RESP 16; O2SAT 97
[2024-06-15 14:21] LABS: Free T4 Free Thyroxine Reflex 0.82 ng/dL (0.78-2.19)
[2024-06-15 18:00] LABS: Total Triiodothyronine (T3) 1.25 NG/ML (0.97-1.69)
== END 2024-06-15 13:56 | disposition home or self-care (01) ==
LOC: ANHED 12:41
PROVIDERS: Registered Nurse; Emergency Provider Emergency Medicine
DX: G47.00 Insomnia, unspecified (principal); Z20.822 Contact with and (suspected) exposure to COVID-19
CPT/HCPCS: 36415; 80053; 80307; 81003; 84439; 84443; 84480; 85025; 87637; 93005; 96372; 99283; A9270; J3360